=== PATIENT | female | born 1985 | race American Indian/Alaskan Native ===

== ENCOUNTER 2016-12-16 19:48 | Outpatient (CLI) | payer BC, MEDICAID ==
[2016-12-16] MEDS ORDERED: LACTATED RINGERS 1,000 ML ONE (20:27)
[2016-12-16] MEDS ORDERED: LACTATED RINGERS 1,000 ML IV ONE (21:10)
[2016-12-16 21:40] LABS: Bilirubin,Urine NEG (Negative); Blood,Urine NEG (Negative); Ketones,Urine TR mg/dL (Negative); Leukocyte Esterase,Urine NEG (Negative); Mucus,Urine FEW /HPF; Nitrite,Urine NEG (Negative); Protein,Urine <15 mg/dL mg/dL (Negative); Urobilinogen,Urine < 2.0 mg/dL (<2.0); WBC,Urine < 1.0 /HPF (0.0-6.0)
== END 2016-12-16 22:23 | disposition home or self-care (01) ==
LOC: TRG 19:48
PROVIDERS: ATTEND Obstetrics & Gynecology
DX: O26.893 Other specified pregnancy related conditions, third trimester (principal); R42 Dizziness and giddiness; Z3A.30 30 weeks gestation of pregnancy
CPT/HCPCS: 81001; 96360; J7120

== ENCOUNTER 2019-03-08 07:21 | Emergency (ER) | payer BC, MEDICAID ==
[2019-03-08] MEDS ORDERED: NORCO 5/325 PO ONE (08:50)
--- NOTE | 2019-03-08 08:52 | Emergency Department Report ---
ED ENT HPI - General Chief complaint: Dental/Oral Stated complaint: LFT SIDE TOOTHACHE/PAIN/SWELLING Time Seen by Provider: 03/08/19 07:53 Source: patient Mode of arrival: Ambulatory Limitations: No Limitations - History of Present Illness Initial comments: This is a 33 year-old female who presents to the emergency room with dental pain on the left upper side near tooth #14. Patient states that tooth broke one or 2 years ago and intermittent pain there only. Patient states she just received Medicaid and haven't found a dentist that is up insurance. She reports pain is worse with eating which progressed to constant throbbing iveth n. She states when she woke up this morning there was swelling to the left jaw. She is taking NSAIDs with minimal improvement of symptoms. She denies drooling, hoarseness, difficulty swallowing, fever, and chest pain. MD complaint: tooth pain Onset/Timin -: days(s) Location: tooth # (14) 1 - Partial tooth with dental decay Severity: severe Severity scale (0 -10): 10 Quality: aching, constant, other (throbbing) Consistency: constant Improves with: none Worsens with: eating Context- Dental: history of dental caries, poor dental care Associated Symptoms: gum swelling, toothache. denies: fever, pain with swallowing, sore throat, tinnitus, hearing loss, discharge from ear, rhinorrhea - Related Data Previous Rx's Medication Instructions Recorded Last Taken Type HYDROcodone/APAP 5-325 [[place] 1 - 2 each PO Q6HR PRN #12 tablet 04/14/16 Unknown Rx 5/325] Ibuprofen [Motrin 800 MG tab] 800 mg PO Q8HR PRN #20 tablet 04/14/16 Unknown Rx Sulfamethoxazole/Trimethoprim 1 each PO BID #20 tablet 04/15/16 Unknown Rx [Bactrim DS TAB] Acetaminophen/Codeine [Tylenol 1 tab PO Q6H PRN #12 tab 03/08/19 Unknown Rx /Codeine # 3 tab] Amlodipine Besylate [Norvasc] 5 mg PO DAILY #30 tablet 03/08/19 Unknown Rx Amoxicillin [Trimox CAP] 500 mg PO Q8H #21 capsule 03/08/19 Unknown Rx Naproxen [Naprosyn] 500 mg PO TID PRN #20 tablet 03/08/19 Unknown Rx hydroCHLOROthiazide [HCTZ] 12.5 mg PO QDAY #30 capsule 03/08/19 Unknown Rx Allergies Allergy/AdvReac Type Severity Reaction Status Date / Time No Known Allergies Allergy Verified 03/08/19 07:24 ED Dental HPI - General Chief complaint: Dental/Oral Stated complaint: LFT SIDE TOOTHACHE/PAIN/SWELLING Time Seen by Provider: 03/08/19 07:53 Source: patient Mode of arrival: Ambulatory Limitations: No Limitations - Related Data Previous Rx's Medication Instructions Recorded Last Taken Type HYDROcodone/APAP 5-325 [[place] 1 - 2 each PO Q6HR PRN #12 tablet 04/14/16 Unknown Rx 5/325] Ibuprofen [Motrin 800 MG tab] 800 mg PO Q8HR PRN #20 tablet 04/14/16 Unknown Rx Sulfamethoxazole/Trimethoprim 1 each PO BID #20 tablet 04/15/16 Unknown Rx [Bactrim DS TAB] Acetaminophen/Codeine [Tylenol 1 tab PO Q6H PRN #12 tab 03/08/19 Unknown Rx /Codeine # 3 tab] Amlodipine Besylate [Norvasc] 5 mg PO DAILY #30 tablet 03/08/19 Unknown Rx Amoxicillin [Trimox CAP] 500 mg PO Q8H #21 capsule 03/08/19 Unknown Rx Naproxen [Naprosyn] 500 mg PO TID PRN #20 tablet 03/08/19 Unknown Rx hydroCHLOROthiazide [HCTZ] 12.5 mg PO QDAY #30 capsule 03/08/19 Unknown Rx Allergies Allergy/AdvReac Type Severity Reaction Status Date / Time No Known Allergies Allergy Verified 03/08/19 07:24 ED Review of Systems ROS: Stated complaint: LFT SIDE TOOTHACHE/PAIN/SWELLING Other details as noted in HPI Constitutional: denies: chills, fever ENT: dental pain. denies: ear pain, throat pain Respiratory: denies: cough, shortness of breath, wheezing Cardiovascular: denies: chest pain, palpitations Gastrointestinal: denies: abdominal pain, nausea, diarrhea Skin: denies: rash, lesions Neurological: denies: headache, weakness, paresthesias Psychiatric: denies: anxiety, depression ED Past Medical Hx - Past Medical History Previous Medical History?: No Hx Hypertension: No Hx CVA: No Hx Diabetes: No Hx Deep Vein Thrombosis: No Hx Renal Disease: No Hx Sickle Cell Disease: No Hx Seizures: No Hx Asthma: No - Surgical History Past Surgical History?: No Additional Surgical History: - Social History Smoking Status: Current Some Day Smoker Substance Use Type: None - Medications Home Medications: Home Medications Medication Instructions Recorded Confirmed Last Taken Type HYDROcodone/APAP 5-325 [[place] 1 - 2 each PO Q6HR PRN #12 tablet 04/14/16 Unknown Rx 5/325] Ibuprofen [Motrin 800 MG tab] 800 mg PO Q8HR PRN #20 tablet 04/14/16 Unknown Rx Sulfamethoxazole/Trimethoprim 1 each PO BID #20 tablet 04/15/16 Unknown Rx [Bactrim DS TAB] Acetaminophen/Codeine [Tylenol 1 tab PO Q6H PRN #12 tab 03/08/19 Unknown Rx /Codeine # 3 tab] Amlodipine Besylate [Norvasc] 5 mg PO DAILY #30 tablet 03/08/19 Unknown Rx Amoxicillin [Trimox CAP] 500 mg PO Q8H #21 capsule 03/08/19 Unknown Rx Naproxen [Naprosyn] 500 mg PO TID PRN #20 tablet 03/08/19 Unknown Rx hydroCHLOROthiazide [HCTZ] 12.5 mg PO QDAY #30 capsule 03/08/19 Unknown Rx ED Physical Exam - General Limitations: No Limitations General appearance: alert, in no apparent distress - ENT ENT exam: Present: normal orophraynx, mucous membranes moist, TM's normal bilaterally, normal external ear exam, other (gingival swelling around #14, partial 2 with dark brown dental caries to center, tenderness, no palpable cyst pocket) - Respiratory Respiratory exam: Present: normal lung sounds bilaterally. Absent: respiratory distress - Cardiovascular Cardiovascular Exam: Present: regular rate, normal rhythm. Absent: systolic murmur, diastolic murmur, rubs, gallop - GI/Abdominal GI/Abdominal exam: Present: soft, normal bowel sounds - Neurological Exam Neurological exam: Present: alert, oriented X3 - Psychiatric Psychiatric exam: Present: normal affect, normal mood - Skin Skin exam: Present: warm, dry, intact, normal color. Absent: rash ED Course Vital Signs 03/08/19 07:25 Temperature 98.0 F Pulse Rate 89 Respiratory 16 Rate Blood Pressure 172/111 O2 Sat by Pulse 99 Oximetry ED Medical Decision Making - Medical Decision Making Patient is stable and was examined by me. Given norco once in ER. Blood pressure elevated on arrival. Past medical history of preeclampsia but no diagnosis of hypertension. There is fracture to #14 with dental caries. Start amoxicillin, amoxicillin, and Tylenol No. 3. Patient is asymptomatic hypertensive. Start amlodipine and HCTZ. Referrals to emergency dental clinics for follow-up. Instructed to follow-up with her primary care doctor regarding hypertension. Discussed plan with patient. She agreed with ER plan. Discharged home stable. Follow up with dentist. Critical care attestation.: If time is entered above; I have spent that time in minutes in the direct care of this critically ill patient, excluding procedure time. ED Disposition Clinical Impression: Dental caries, Asymptomatic hypertension Fractured tooth Qualifiers: Encounter type: initial encounter Fracture type: closed Qualified Code(s): S02.5XXA - Fracture of tooth (traumatic), initial encounter for closed fracture Disposition: TO HOME OR SELFCARE Is pt being admited?: No Does the pt Need Aspirin: No Condition: Stable Instructions: Dental Caries (ED), Toothache (ED), Hypertension (ED) Additional Instructions: Complete all days of antibiotics is prescribed for 7 days. Take pain medication every 6 hours as needed for pain. .I have provided a list of emergency dental clinics in the referral section below for follow-up. Prescriptions: hydroCHLOROthiazide [HCTZ] 12.5 mg PO QDAY #30 capsule Naproxen [Naprosyn] 500 mg PO TID PRN #20 tablet PRN Reason: Pain , Severe (7-10) Amlodipine Besylate [Norvasc] 5 mg PO DAILY #30 tablet Amoxicillin [Trimox CAP] 500 mg PO Q8H #21 capsule Acetaminophen/Codeine [Tylenol /Codeine # 3 tab] 1 tab PO Q6H PRN #12 tab PRN Reason: Pain , Severe (7-10) Referrals: [facility] [Outside] - 3-5 Days [facility] [Outside] - 3-5 Days [facility] [Outside] - 3-5 Days Forms: Work/School Release Form(ED) Time of Disposition: 08:59
[2019-03-08 10:01] VITALS: BP 185/119
== END 2019-03-08 10:12 | disposition home or self-care (01) ==
LOC: ED 07:21
DX: M84.40XA Pathological fracture, unspecified site, initial encounter for fracture (principal); I10 Essential (primary) hypertension; K02.9 Dental caries, unspecified; F17.200 Nicotine dependence, unspecified, uncomplicated; Z98.890 Other specified postprocedural states; Z79.899 Other long term (current) drug therapy
CPT/HCPCS: 99282